=== PATIENT | female | born 1985 | race Caucasian/White ===

== ENCOUNTER 2020-08-10 03:37 | Emergency (ER) | payer MEDICAID ==
[~2020-08-10] VITALS: Ht 170.2 cm; Wt 119.0 kg
[2020-08-10] MEDS ORDERED: KETOROLAC 30MG/ML VIAL IV ONE (06:15)
[2020-08-10] MEDS ORDERED: DEXAMETHASONE 10 MG/ML VIAL IV ONE (06:15)
[2020-08-10] MEDS ORDERED: CLINDAMYCIN 600 MG in DEXTROSE 5% WATER 50 ML IV ONE (06:15)
[2020-08-10] MEDS ORDERED: CLINDAMYCIN 600MG PREMIX 50 ML IV ONE (06:30)
[2020-08-10] MEDS ORDERED: IBUP-2028 MT (07:04)
[2020-08-10] MEDS ORDERED: CLIN150C15 MT (07:04)
[2020-08-10 09:21] VITALS: BP 106/62
== END 2020-08-10 09:22 | disposition home or self-care (01) ==
LOC: ER 04:03
DX: L03.211 Cellulitis of face (principal); K04.7 Periapical abscess without sinus; I11.0 Hypertensive heart disease with heart failure; I50.9 Heart failure, unspecified; F12.10 Cannabis abuse, uncomplicated
CPT/HCPCS: 96365; 96375; 99285; J1100; J1885; J3490; J7060

== ENCOUNTER 2021-02-10 19:27 | Emergency (ER) | payer MEDICAID ==
[~2021-02-10] VITALS: Ht 177.8 cm; Wt 91.0 kg
[~2021-02-10 19:27] MED LIST: CLIN150C15 MT; IBUP-2028 MT
[2021-02-10 19:45] VITALS: BP 150/92
== END 2021-02-10 20:30 | disposition left against medical advice (07) ==
LOC: ER 19:27
DX: S09.8XXA Other specified injuries of head, initial encounter (principal); Y04.2XXA Assault by strike against or bumped into by another person, initial encounter; Y93.89 Activity, other specified; Y92.89 Other specified places as the place of occurrence of the external cause; I11.0 Hypertensive heart disease with heart failure; I50.9 Heart failure, unspecified
CPT/HCPCS: 99283

== ENCOUNTER 2021-04-12 21:47 | Emergency (ER) | payer MEDICAID ==
[~2021-04-12] VITALS: Ht 188 cm; Wt 113.0 kg
[~2021-04-12 21:47] MED LIST changes: +CLIN-116 MT; -CLIN150C15 MT
[2021-04-12] MEDS ORDERED: SODIUM CHLORIDE 0.9% 1,000 ML IV ONE (22:30)
[2021-04-12 23:17] LABS: BASOPHILS % 0.8 % (0.0-2.0); EOSINOPHILS % 1.7 % (0.0-5.0); HEMATOCRIT. 41.2 % (36.0-48.0); HEMOGLOBIN. 13.8 g/dL (12.0-16.0); LYMPHOCYTES % 21.6 % (20.0-50.0); MEAN CORPUSCULAR HEMOGLOBIN 28.4 pg (28.0-32.0); MEAN CORPUSCULAR VOLUME 84.3 fL (81.0-99.0); MEAN PLATELET VOLUME 9.1 fl (7.4-10.4); MONOCYTES % 7.8 % (2.0-8.0); NEUTROPHILS % 68.1 % (40.0-76.0); PLATELET 203 x1000/uL (130-400); RED BLOOD CELL COUNT 4.88 mill/uL (4.2-5.4); RED CELL DISTRIBUTION WIDTH 14.4 % (11.6-14.6)
[2021-04-12 23:24] LABS: CHLORIDE 104 mEq/L (98-107)
[2021-04-12 23:25] LABS: CLARITY URINE TURBID (CLEAR); KETONES URINE 2+ (NEGATIVE); LEUKOCYTE ESTERASE URINE 3+ (NEGATIVE); NITRITE URINE POSITIVE (NEGATIVE); OCCULT BLOOD URINE 3+ (NEGATIVE); PROTEIN URINE 3+ (NEGATIVE); SPECIFIC GRAVITY URINE 1.028 (1.005-1.030)
[2021-04-12 23:29] LABS: ETHANOL BLOOD < 10 mg/dL
[2021-04-12 23:31] LABS: HCG SCREEN NEGATIVE
[2021-04-12 23:34] LABS: COLOR URINE BLOODY (YELLOW)
[2021-04-12 23:36] LABS: *BARBITURATES SCREEN URINE NEGATIVE (NEGATIVE); *BENZODIAZEPINES SCREEN URINE NEGATIVE (NEGATIVE); *COCAINE SCREEN URINE NEGATIVE (NEGATIVE)
[2021-04-12 23:37] LABS: METHADONE URINE SCREEN NEGATIVE (NEGATIVE)
[2021-04-12 23:42] LABS: *AMPHETAMINES SCREEN URINE PRESUMTIVE POSITIVE (NEGATIVE); CANNABINOID URINE SCREEN PRESUMTIVE POSITIVE (NEGATIVE); OPIATES URINE SCREEN PRESUMTIVE POSITIVE (NEGATIVE); PHENCYCLIDINE URINE SCREEN PRESUMTIVE POSITIVE (NEGATIVE)
[2021-04-13] MEDS ORDERED: CEFTRIAXONE 1 G PREMIX 50 ML IV ONE (00:15)
[2021-04-13] MEDS ORDERED: CEPH250C2 MT (01:40)
[2021-04-13] MEDS ORDERED: NALO4SPR BOTHNSTRLS (01:40)
[2021-04-13 05:00] VITALS: BP 131/84
== END 2021-04-13 05:33 | disposition home or self-care (01) ==
LOC: ER 21:47
DX: F19.10 Other psychoactive substance abuse, uncomplicated (principal); N39.0 Urinary tract infection, site not specified; I11.0 Hypertensive heart disease with heart failure; I50.9 Heart failure, unspecified; F11.10 Opioid abuse, uncomplicated
CPT/HCPCS: 36415; 71045; 80053; 80305; 80320; 81003; 84703; 85025; 93005; 96361; 96365; 99285; J0696; J7030; G0480

== ENCOUNTER 2021-09-11 22:06 | Emergency (ER) | payer MEDICAID ==
[~2021-09-11] VITALS: Ht 167.6 cm; Wt 100.0 kg
[~2021-09-11 22:06] MED LIST changes: +CEPH250C2 MT; +NALO4SPR BOTHNSTRLS
[2021-09-11] MEDS ORDERED: NALOXONE HCL 0.4 MG/ML 1ML VIAL IV PRN (22:30)
[2021-09-11 22:31] VITALS: BP 146/70
== END 2021-09-11 22:49 | disposition left against medical advice (07) ==
LOC: ER 22:06
DX: T40.1X1A Poisoning by heroin, accidental (unintentional), initial encounter (principal); F15.10 Other stimulant abuse, uncomplicated; I11.0 Hypertensive heart disease with heart failure; I50.9 Heart failure, unspecified; Y92.018 Other place in single-family (private) house as the place of occurrence of the external cause
CPT/HCPCS: 99283

== ENCOUNTER 2022-01-23 14:23 | Emergency (ER) | payer MEDICAID ==
[~2022-01-23] VITALS: Ht 172.7 cm; Wt 80.0 kg
[2022-01-23] MEDS ORDERED: ONDANSETRON 4MG ODT PO STA (14:37)
[2022-01-23] MEDS ORDERED: ONDANSETRON 4MG ODT PO NR (14:37)
[2022-01-23 16:42] LABS: HEMATOCRIT. 38.1 % (36.0-48.0); HEMOGLOBIN. 12.4 g/dL (12.0-16.0); MEAN CORPUSCULAR HEMOGLOBIN 27.9 pg (28.0-32.0); MEAN CORPUSCULAR VOLUME 85.3 fL (81.0-99.0); RED BLOOD CELL COUNT 4.46 mill/uL (4.2-5.4); RED CELL DISTRIBUTION WIDTH 14.5 % (11.6-14.6)
[2022-01-23 16:52] LABS: CHLORIDE 102 mEq/L (98-107)
[2022-01-23 17:00] LABS: ETHANOL BLOOD < 10 mg/dL
[2022-01-23 18:43] LABS: PLATELET ESTIMATE NORMAL
[2022-01-23 18:44] LABS: MEAN PLATELET VOLUME 9.1 fl (7.4-10.4); PLATELET 204 x1000/uL (130-400)
[2022-01-23 18:59] LABS: CLARITY URINE CLEAR (CLEAR); COLOR URINE DARK YELLOW (YELLOW); KETONES URINE 1+ (NEGATIVE); LEUKOCYTE ESTERASE URINE TRACE (NEGATIVE); NITRITE URINE POSITIVE (NEGATIVE); OCCULT BLOOD URINE 2+ (NEGATIVE); PROTEIN URINE 1+ (NEGATIVE); SPECIFIC GRAVITY URINE 1.028 (1.005-1.030)
[2022-01-23 19:10] LABS: *BARBITURATES SCREEN URINE NEGATIVE (NEGATIVE); *BENZODIAZEPINES SCREEN URINE NEGATIVE (NEGATIVE); *COCAINE SCREEN URINE NEGATIVE (NEGATIVE); METHADONE URINE SCREEN NEGATIVE (NEGATIVE); PHENCYCLIDINE URINE SCREEN NEGATIVE (NEGATIVE)
[2022-01-23 19:24] LABS: *AMPHETAMINES SCREEN URINE PRESUMTIVE POSITIVE (NEGATIVE); CANNABINOID URINE SCREEN PRESUMTIVE POSITIVE (NEGATIVE); OPIATES URINE SCREEN PRESUMTIVE POSITIVE (NEGATIVE)
[2022-01-23] MEDS ORDERED: CEPH500T MT (19:49)
[2022-01-23] MEDS ORDERED: NALO4SPR BOTHNSTRLS (19:49)
[2022-01-23 20:30] VITALS: BP 111/69
== END 2022-01-23 20:35 | disposition home or self-care (01) ==
LOC: ER 14:31
DX: T65.91XA Toxic effect of unspecified substance, accidental (unintentional), initial encounter (principal); F15.10 Other stimulant abuse, uncomplicated; F16.129 Hallucinogen abuse with intoxication, unspecified; F11.129 Opioid abuse with intoxication, unspecified; I11.0 Hypertensive heart disease with heart failure; I50.9 Heart failure, unspecified; Y92.9 Unspecified place or not applicable
CPT/HCPCS: 36415; 80053; 80305; 80307; 80320; 80329; 81003; 85025; 99283; Q0162; G0480

== ENCOUNTER 2022-03-26 19:18 | Emergency (ER) | payer MEDICAID ==
[~2022-03-26] VITALS: Ht 172.7 cm; Wt 93.3 kg
[~2022-03-26 19:18] MED LIST changes: +CEPH500T MT
[2022-03-26 19:47] VITALS: BP 132/87
[2022-03-26 22:09] LABS: CLARITY URINE CLOUDY (CLEAR); COLOR URINE YELLOW (YELLOW); KETONES URINE NEGATIVE (NEGATIVE); LEUKOCYTE ESTERASE URINE 1+ (NEGATIVE); NITRITE URINE POSITIVE (NEGATIVE); OCCULT BLOOD URINE 2+ (NEGATIVE); PROTEIN URINE 1+ (NEGATIVE); SPECIFIC GRAVITY URINE 1.026 (1.005-1.030)
[2022-03-26 22:23] LABS: *BARBITURATES SCREEN URINE NEGATIVE (NEGATIVE); *BENZODIAZEPINES SCREEN URINE NEGATIVE (NEGATIVE); *COCAINE SCREEN URINE NEGATIVE (NEGATIVE); METHADONE URINE SCREEN NEGATIVE (NEGATIVE); OPIATES URINE SCREEN NEGATIVE (NEGATIVE); PHENCYCLIDINE URINE SCREEN NEGATIVE (NEGATIVE)
[2022-03-26 22:27] LABS: *AMPHETAMINES SCREEN URINE PRESUMTIVE POSITIVE (NEGATIVE); CANNABINOID URINE SCREEN PRESUMTIVE POSITIVE (NEGATIVE)
[2022-03-26 22:55] LABS: BASOPHILS % 0.5 % (0.0-2.0); EOSINOPHILS % 1.8 % (0.0-5.0); HEMATOCRIT. 42.2 % (36.0-48.0); HEMOGLOBIN. 13.7 g/dL (12.0-16.0); LYMPHOCYTES % 35.9 % (20.0-50.0); MEAN CORPUSCULAR HEMOGLOBIN 27.7 pg (28.0-32.0); MEAN CORPUSCULAR VOLUME 85.2 fL (81.0-99.0); MEAN PLATELET VOLUME 9.5 fl (7.4-10.4); MONOCYTES % 8.7 % (2.0-8.0); NEUTROPHILS % 53.1 % (40.0-76.0); PLATELET 146 x1000/uL (130-400); RED BLOOD CELL COUNT 4.95 mill/uL (4.2-5.4); RED CELL DISTRIBUTION WIDTH 16.1 % (11.6-14.6)
[2022-03-26 23:00] LABS: CHLORIDE 99 mEq/L (98-107)
[2022-03-26 23:05] LABS: HCG SCREEN NEGATIVE; PROTHROMBIN TIME 10.8 sec (9.6-11.0)
[2022-03-26 23:12] LABS: ETHANOL BLOOD < 10 mg/dL
== END 2022-03-27 | disposition left against medical advice (07) ==
LOC: ER 19:18
DX: Z53.21 Procedure and treatment not carried out due to patient leaving prior to being seen by health care provider (principal)
CPT/HCPCS: 36415; 71045; 80053; 80305; 80320; 81003; 83880; 84484; 84703; 85025; G0480

== ENCOUNTER 2023-03-09 07:10 | Emergency (ER) | payer MEDICAID ==
[~2023-03-09] VITALS: Ht 172.7 cm; Wt 90.4 kg
[2023-03-09 07:15] VITALS: BP 142/94; PULSE 108; RESP 18; TEMP 98.8; O2SAT 99
== END 2023-03-09 08:31 | disposition left against medical advice (07) ==
LOC: ER 07:10
DX: T76.21XA Adult sexual abuse, suspected, initial encounter (principal); I11.0 Hypertensive heart disease with heart failure; I50.9 Heart failure, unspecified; Z79.899 Other long term (current) drug therapy; Y09 Assault by unspecified means
CPT/HCPCS: 99281